=== PATIENT | female | born 1950 | race Caucasian/White ===

== ENCOUNTER 2021-10-09 16:04 | Inpatient (IN) | payer MEDICARE, BC ==
[~2021-10-09] VITALS: Ht 167.6 cm; Wt 62.1 kg
[2021-10-09 16:42] LABS: BASOPHILS % 0.3 % (0.0-1.0); EOSINOPHILS # (AUTO) 0.5 (0.0-0.4); EOSINOPHILS % 6.5 % (0.0-6.0); HEMATOCRIT 27.6 % (34.2-44.1); HEMOGLOBIN 8.4 g/dL (12.0-16.0); LYMPHOCYTES # (AUTO) 1.2 (1.0-3.2); LYMPHOCYTES % 16.2 % (18.0-39.1); MEAN CORPUSCULAR HEMOGLOBIN 21.4 pg (28-32); MEAN CORPUSCULAR HGB CONC 30.4 g/dL (31-35); MEAN CORPUSCULAR VOLUME 70.2 fL (81-99); MONOCYTES # (AUTO) 0.6 (0.2-0.8); MONOCYTES % 7.4 % (4.4-11.3); NEUTROPHILS # (AUTO) 5.2 (2.1-6.9); NEUTROPHILS % 69.2 % (38.7-80.0); PLATELET COUNT 336 x10e3/uL (140-360); RED BLOOD COUNT 3.93 x10e6/uL (3.6-5.1)
[2021-10-09] MEDS ORDERED: ONDANSETRON HCL INJ 2MG/ML 2ML 2 MG/ML VIAL IV PRN (16:45)
[2021-10-09] MEDS ORDERED: SODIUM CHLORIDE FLUSH 10 ML SYR INJ PRN (16:45)
[2021-10-09] MEDS ORDERED: Morphine 2mg Syringe 2 MG/ML SYR IV PRN (16:45)
[2021-10-09] MEDS: ONDANSETRON HCL INJ 2MG/ML 2ML 2 MG/ML VIAL IV PRN (16:52)
[2021-10-09] MEDS: PIPERACILLIN/TAZOBACTAM 3.375 GM in SODIUM CHLORIDE 0.9% 50ML 50 ML IV SCH ×3 (16:52→23:19)
[2021-10-09] MEDS: Morphine 2mg Syringe 2 MG/ML SYR IV PRN ×2 (16:52→23:19)
[2021-10-09 17:03] LABS: ALBUMIN 2.7 g/dL (3.5-5.0); ALBUMIN/GLOBULIN RATIO 0.7 (0.8-2.0); ANION GAP 14.7 mmol/L (8-16); CALCIUM 8.2 mg/dL (8.4-10.2); CREATININE, SERUM 0.8 mg/dL (0.57-1.11); POTASSIUM 3.7 mmol/L (3.5-5.1)
[2021-10-09] MEDS ORDERED: FENTANYL CITRATE/PF 100MCG/2 ML INJ IV ONE (18:45)
[2021-10-09] MEDS ORDERED: FENTANYL CITRATE/PF 100MCG/2 ML INJ ONE (18:55)
[2021-10-09 20:56] VITALS: BP 111/60
[2021-10-09] MEDS ORDERED: SYNTHROID88 MCG PO (21:24)
[2021-10-09] MEDS ORDERED: LEXAPRO10 MG PO (21:24)
[2021-10-09] MEDS ORDERED: NEURONTIN300 MG PO (21:24)
[2021-10-09] MEDS ORDERED: ALBUTEROL0.63 MG/3 NEB (21:24)
[2021-10-09] MEDS ORDERED: SIMVASTATIN40 MG PO (21:24)
[2021-10-09] MEDS ORDERED: ZETIA10 MG PO (21:24)
[2021-10-09 21:25] VITALS: BP 111/60
[2021-10-09 21:26] VITALS: BP 111/60
[2021-10-09] MEDS ORDERED: SODIUM CHLORIDE 0.9% 250ML 250 ML ONE (23:10)
[2021-10-10] VITALS (8 sets, daily range): BP systolic 108–130; BP diastolic 62–74
[2021-10-10] MEDS: PIPERACILLIN/TAZOBACTAM 3.375 GM in SODIUM CHLORIDE 0.9% 50ML 50 ML IV SCH ×3 (05:42→17:26)
[2021-10-10 06:43] LABS: BASOPHILS % 0.6 % (0.0-1.0); EOSINOPHILS # (AUTO) 0.6 (0.0-0.4); EOSINOPHILS % 12.4 % (0.0-6.0); HEMATOCRIT 26.8 % (34.2-44.1); HEMOGLOBIN 8.1 g/dL (12.0-16.0); LYMPHOCYTES # (AUTO) 1.6 (1.0-3.2); LYMPHOCYTES % 33.4 % (18.0-39.1); MEAN CORPUSCULAR HEMOGLOBIN 21.1 pg (28-32); MEAN CORPUSCULAR HGB CONC 30.2 g/dL (31-35); MEAN CORPUSCULAR VOLUME 69.8 fL (81-99); MONOCYTES # (AUTO) 0.6 (0.2-0.8); MONOCYTES % 12.2 % (4.4-11.3); NEUTROPHILS % 40.6 % (38.7-80.0); PLATELET COUNT 296 x10e3/uL (140-360); RED BLOOD COUNT 3.84 x10e6/uL (3.6-5.1); RED CELL DISTRIBUTION WIDTH 14.3 % (11.7-14.4)
[2021-10-10] MEDS: Morphine 2mg Syringe 2 MG/ML SYR IV PRN ×3 (12:14→22:30)
[2021-10-10] MEDS: ONDANSETRON HCL INJ 2MG/ML 2ML 2 MG/ML VIAL IV PRN ×3 (12:14→22:30)
[2021-10-10] MEDS: KETOROLAC TROMETHAMINE 30 MG/ML VIAL IV PRN ×2 (14:59→21:05)
[2021-10-10] MEDS: GABAPENTIN 300 MG CAP PO SCH ×2 (14:59→21:04)
[2021-10-10] MEDS: SIMVASTATIN 40 MG TAB PO SCH (21:04)
[2021-10-11] VITALS (8 sets, daily range): BP systolic 94–158; BP diastolic 54–79
[2021-10-11] MEDS: ONDANSETRON HCL INJ 2MG/ML 2ML 2 MG/ML VIAL IV PRN ×3 (02:30→18:44)
[2021-10-11] MEDS: Morphine 2mg Syringe 2 MG/ML SYR IV PRN ×3 (02:30→18:44)
[2021-10-11] MEDS: KETOROLAC TROMETHAMINE 30 MG/ML VIAL IV PRN ×3 (04:02→21:37)
[2021-10-11] MEDS: LEVOTHYROXINE SODIUM 88 MCG TAB PO SCH (06:17)
[2021-10-11] MEDS: PIPERACILLIN/TAZOBACTAM 3.375 GM in SODIUM CHLORIDE 0.9% 50ML 50 ML IV SCH ×5 (06:17→17:45)
[2021-10-11] MEDS: ESCITALOPRAM OXALATE 10 MG TAB PO SCH (08:13)
[2021-10-11] MEDS: GABAPENTIN 300 MG CAP PO SCH ×3 (08:13→20:58)
[2021-10-11] MEDS: EZETIMIBE 10 MG TAB PO SCH (08:13)
[2021-10-11] MEDS: SIMVASTATIN 40 MG TAB PO SCH (20:58)
[2021-10-11] MEDS: TEMAZEPAM 7.5 MG CAP PO PRN (20:59)
[2021-10-12] VITALS (8 sets, daily range): BP systolic 131–153; BP diastolic 66–83
[2021-10-12] MEDS: PIPERACILLIN/TAZOBACTAM 3.375 GM in SODIUM CHLORIDE 0.9% 50ML 50 ML IV SCH ×5 (01:01→23:36)
[2021-10-12] MEDS: LEVOTHYROXINE SODIUM 88 MCG TAB PO SCH (06:07)
[2021-10-12 06:28] LABS: BASOPHILS % 0.5 % (0.0-1.0); EOSINOPHILS # (AUTO) 0.7 (0.0-0.4); EOSINOPHILS % 12.5 % (0.0-6.0); HEMATOCRIT 26.5 % (34.2-44.1); LYMPHOCYTES # (AUTO) 2.1 (1.0-3.2); MEAN CORPUSCULAR HEMOGLOBIN 21.2 pg (28-32); MEAN CORPUSCULAR HGB CONC 30.2 g/dL (31-35); MEAN CORPUSCULAR VOLUME 70.3 fL (81-99); MONOCYTES # (AUTO) 0.7 (0.2-0.8); NEUTROPHILS # (AUTO) 2.1 (2.1-6.9); NEUTROPHILS % 37.1 % (38.7-80.0); PLATELET COUNT 306 x10e3/uL (140-360); RED BLOOD COUNT 3.77 x10e6/uL (3.6-5.1); RED CELL DISTRIBUTION WIDTH 14.4 % (11.7-14.4)
[2021-10-12 07:19] LABS: ALBUMIN 2.5 g/dL (3.5-5.0); ALBUMIN/GLOBULIN RATIO 0.7 (0.8-2.0); ANION GAP 9.8 mmol/L (8-16); CALCIUM 7.7 mg/dL (8.4-10.2); CREATININE, SERUM 0.73 mg/dL (0.57-1.11); POTASSIUM 3.8 mmol/L (3.5-5.1)
[2021-10-12] MEDS: GABAPENTIN 300 MG CAP PO SCH ×3 (08:29→20:07)
[2021-10-12] MEDS: ESCITALOPRAM OXALATE 10 MG TAB PO SCH (08:29)
[2021-10-12] MEDS: EZETIMIBE 10 MG TAB PO SCH (08:30)
[2021-10-12] MEDS: KETOROLAC TROMETHAMINE 30 MG/ML VIAL IV PRN (08:46)
[2021-10-12] MEDS: Morphine 2mg Syringe 2 MG/ML SYR IV PRN ×2 (12:40→20:10)
[2021-10-12] MEDS: ONDANSETRON HCL INJ 2MG/ML 2ML 2 MG/ML VIAL IV PRN ×2 (13:57→20:10)
[2021-10-12] MEDS ORDERED: MAGNESIUM HYDROXIDE 30 ML UDC PO ONE (18:55)
[2021-10-12] MEDS: SIMVASTATIN 40 MG TAB PO SCH (20:07)
[2021-10-12] MEDS: TEMAZEPAM 7.5 MG CAP PO PRN (23:36)
[2021-10-13 00:48] VITALS: BP 163/89
[2021-10-13] MEDS ORDERED: SODIUM CHLORIDE 0.9% 100 ML ONE (03:25)
[2021-10-13 05:49] VITALS: BP 153/86
[2021-10-13] MEDS: PIPERACILLIN/TAZOBACTAM 3.375 GM in SODIUM CHLORIDE 0.9% 50ML 50 ML IV SCH (06:25)
[2021-10-13] MEDS: LEVOTHYROXINE SODIUM 88 MCG TAB PO SCH (06:44)
[2021-10-13 07:42] VITALS: BP 132/84
[2021-10-13 07:47] VITALS: BP 132/84
[2021-10-13] MEDS ORDERED: KEFLEX125 MG/5 M PO (08:00)
[2021-10-13] MEDS: GABAPENTIN 300 MG CAP PO SCH (08:11)
[2021-10-13] MEDS: ESCITALOPRAM OXALATE 10 MG TAB PO SCH (08:11)
[2021-10-13] MEDS: EZETIMIBE 10 MG TAB PO SCH (08:11)
[2021-10-13] MEDS: KETOROLAC TROMETHAMINE 30 MG/ML VIAL IV PRN (08:11)
== END 2021-10-13 09:40 | disposition home or self-care (01) | DRG 393 ==
LOC: ER 16:16 → ERHOLD 16:42 → MED/SURG3 18:49
PROVIDERS: ADMIT Internal Medicine; ATTEND Internal Medicine
DX: N82.3 Fistula of vagina to large intestine (principal); K57.81 Diverticulitis of intestine, part unspecified, with perforation and abscess with bleeding; N39.0 Urinary tract infection, site not specified; Z90.710 Acquired absence of both cervix and uterus; Z20.822 Contact with and (suspected) exposure to COVID-19; K58.1 Irritable bowel syndrome with constipation; G89.4 Chronic pain syndrome; F32.A Depression, unspecified; G62.9 Polyneuropathy, unspecified; D64.9 Anemia, unspecified; E78.00 Pure hypercholesterolemia, unspecified
CPT/HCPCS: 36415; 80053; 83735; 85025; 87040; 87086; 99284; J1885; J2270; J2405; J2543; J3010; J7050; U0002

== ENCOUNTER → 2021-10-22 | Outpatient (CLI) | payer MEDICARE, BC ==
[~2021-10-22] MED LIST: ALBUTEROL0.63 MG/3 NEB; DIATRIZOATE MEGL/DIATRIZOA SOD 30 ML BTL PO ONE; IOPAMIDOL 370 MG/ML 200 ML INFUS..BTL INJ ONE; KEFLEX125 MG/5 M PO; LEXAPRO10 MG PO; NEURONTIN300 MG PO; SIMVASTATIN40 MG PO; SODIUM CHLORIDE 0.9% 50ML 50 ML ONE; SYNTHROID88 MCG PO; ZETIA10 MG PO
[2021-10-22 14:52] LABS: CREATININE, SERUM 0.59 mg/dL (0.57-1.11)
== END ==
LOC: CT 13:42
PROVIDERS: ATTEND Surgery
DX: K57.92 Diverticulitis of intestine, part unspecified, without perforation or abscess without bleeding (principal)
CPT/HCPCS: 36415; 74177; 82565; 84520; Q9967

== ENCOUNTER 2021-11-05 16:51 | Emergency (ER) | payer MEDICARE, BC ==
[~2021-11-05] VITALS: Ht 167.6 cm; Wt 62.1 kg
[~2021-11-05 16:51] MED LIST changes: -DIATRIZOATE MEGL/DIATRIZOA SOD 30 ML BTL PO ONE; -IOPAMIDOL 370 MG/ML 200 ML INFUS..BTL INJ ONE; -SODIUM CHLORIDE 0.9% 50ML 50 ML ONE
[2021-11-05 17:32] LABS: BASOPHILS % 0.2 % (0.0-1.0); EOSINOPHILS # (AUTO) 0.3 (0.0-0.4); EOSINOPHILS % 2.7 % (0.0-6.0); HEMATOCRIT 29.4 % (34.2-44.1); LYMPHOCYTES # (AUTO) 1.7 (1.0-3.2); LYMPHOCYTES % 15.6 % (18.0-39.1); MEAN CORPUSCULAR HEMOGLOBIN 20.8 pg (28-32); MEAN CORPUSCULAR HGB CONC 30.6 g/dL (31-35); MEAN CORPUSCULAR VOLUME 67.9 fL (81-99); MONOCYTES # (AUTO) 0.8 (0.2-0.8); MONOCYTES % 7.5 % (4.4-11.3); NEUTROPHILS # (AUTO) 7.8 (2.1-6.9); NEUTROPHILS % 73.6 % (38.7-80.0); PLATELET COUNT 207 x10e3/uL (140-360); RED BLOOD COUNT 4.33 x10e6/uL (3.6-5.1); RED CELL DISTRIBUTION WIDTH 14.3 % (11.7-14.4)
[2021-11-05 17:47] LABS: ALBUMIN 2.9 g/dL (3.5-5.0); ALBUMIN/GLOBULIN RATIO 0.7 (0.8-2.0); ANION GAP 9.6 mmol/L (8-16); CALCIUM 9.2 mg/dL (8.4-10.2); CREATININE, SERUM 0.76 mg/dL (0.57-1.11); POTASSIUM 3.6 mmol/L (3.5-5.1)
[2021-11-05 19:18] LABS: CLARITY,URINE HAZY (CLEAR); COLOR,URINE AMBER (YELLOW); KETONES,URINE TRACE (NEGATIVE); LEUKOCYTE ESTERASE ,URINE TRACE (NEGATIVE); NITRITE,URINE NEGATIVE (NEGATIVE); PROTEIN,URINE DIPSTICK NEGATIVE (NEGATIVE); URINE UROBILINOGEN 1 mg/dL (0.2 - 1)
[2021-11-05 19:25] LABS: BACTERIA,URINE MODERATE /HPF; CALCIUM OXALATE CRYSTALS,UR RARE (FEW); EPITHELIAL CELLS,URINE FEW /LPF
== END 2021-11-05 21:08 | disposition home or self-care (01) ==
LOC: ER 17:30
DX: R50.9 Fever, unspecified (principal); J18.9 Pneumonia, unspecified organism; R05.9 Cough, unspecified; I10 Essential (primary) hypertension; J45.909 Unspecified asthma, uncomplicated; E05.00 Thyrotoxicosis with diffuse goiter without thyrotoxic crisis or storm; G62.9 Polyneuropathy, unspecified
CPT/HCPCS: 36415; 71045; 80053; 81001; 83605; 85025; 87040; 99282; U0002

== ENCOUNTER → 2021-11-26 | Outpatient (CLI) | payer MEDICARE, BC | LOC: DX 09:34 | PROVIDERS: ATTEND Surgery | DX: K57.30 Diverticulosis of large intestine without perforation or abscess without bleeding (principal) | CPT/HCPCS: 74280 ==